=== PATIENT | female | born 2000 ===

== ENCOUNTER 2020-05-23 14:29 | Emergency (ER) | payer BC ==
[2020-05-23 14:37] VITALS: BP 140/72
[2020-05-23] MEDS ORDERED: DICYCLOMINE 20 MG TAB PO ONE (17:29)
--- NOTE | 2020-05-23 17:35 | Emergency Department Report ---
ED Abdominal Pain HPI - General Chief Complaint: GI Bleed Stated Complaint: STOMACH PAIN/THROWING UP BLOOD Time Seen by Provider: 05/23/20 17:28 Source: patient Mode of arrival: Ambulatory Limitations: No Limitations - History of Present Illness Initial Comments: The patient was evaluated in the emergency department for symptoms described in the history of present illness. He/she was evaluated in the context of the global COVID-19 pandemic, which necessitated consideration that the patient might be at risk for infection with the virus that causes COVID-19. Institutional protocols and algorithms that pertain to the evaluation of patients at risk for COVID-19 are in a state of rapid change based on information released by regulatory bodies including the CDC and federal and state organizations. These policies and algorithms were followed during the patient's care in the emergency department. Please note that these policies, procedures and recommendations changed on a rapid basis. 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 Patient reports that the pain is located in the ep igastric area it is constant and stabbing and is a 9 out of 10. Patient reports that last night she had vomited blood with her vomitus. Patient denies any fever but admits to chills. She denies any vaginal discharge no vaginal bleeding. She admits to nausea. She is 0. She denies any cigarette, cannabis use or alcohol consumption. Patient states that she has a current history of anemia and takes iron. She states nothing makes it better and worse with eating. Patient states that she has a primary care provider at [facility] - [place], [place] but did not follow-up with them. Her last menstrual period was 04/01/2020. She reports she has a history of irregular menses. MD Complaint: abdominal pain Onset/Timin -: week(s) Location: epigastric Radiation: none Migration to: no migration Severity scale (0 -10): 9 Quality: stabbing Consistency: constant Improves With: nothing Worsens With: eating Associated Symptoms: nausea, vomiting (X2), chills, hematemesis. denies: diarrhea, fever, constipation, dysuria, hematuria - Related Data LMP Date: 04/01/20 Previous Rx's Medication Instructions Recorded Last Taken Type Dicyclomine [Bentyl] 10 mg PO QID PRN #20 capsule 05/23/20 Unknown Rx Allergies Allergy/AdvReac Type Severity Reaction Status Date / Time No Known Allergies Allergy Unverified 10/28/15 21:03 ED Review of Systems ROS: Stated complaint: STOMACH PAIN/THROWING UP BLOOD Other details as noted in HPI Comment: All other systems reviewed and negative ED Past Medical Hx - Past Medical History Previous Medical History?: No - Surgical History Past Surgical History?: No - Social History Smoking Status: Never Smoker - Medications Home Medications: Home Medications Medication Instructions Recorded Confirmed Last Taken Type Dicyclomine [Bentyl] 10 mg PO QID PRN #20 capsule 05/23/20 Unknown Rx ED Physical Exam - General Limitations: No Limitations General appearance: alert, in no apparent distress - Head Head exam: Present: atraumatic, normocephalic - Eye Eye exam: Present: normal appearance - ENT ENT exam: Present: mucous membranes moist - Neck Neck exam: Present: normal inspection, full ROM - Respiratory Respiratory exam: Present: normal lung sounds bilaterally. Absent: accessory muscle use - Cardiovascular Cardiovascular Exam: Present: regular rate - GI/Abdominal GI/Abdominal exam: Present: soft, tenderness (Epigastric), normal bowel sounds. Absent: distended - Extremities Exam Extremities exam: Present: normal inspection, full ROM - Back Exam Back exam: Present: normal inspection, full ROM - Neurological Exam Neurological exam: Present: alert, oriented X3, normal gait - Psychiatric Psychiatric exam: Present: normal affect, normal mood - Skin Skin exam: Present: warm, dry, intact, normal color. Absent: rash ED Course Vital Signs 05/23/20 14:36 Temperature 98.0 F Pulse Rate 78 Respiratory 16 Rate Blood Pressure 140/72 O2 Sat by Pulse 99 Oximetry - Reevaluation(s) Reevaluation #1: 05/23/20 20:59 Patient reports she feels better after having the medication. ED Medical Decision Making - Lab Data Result diagrams: 05/23/20 17:36 05/23/20 17:36 - Radiology Data Radiology results: report reviewed Ordering Physician: MISBAH EWING Date of Service: 05/23/20 Procedure(s): CT abdomen pelvis w con Accession Number(s): [id number] cc: MISBAH EWING CT ABDOMEN AND PELVIS WITH IV CONTRAST INDICATION: Epigastric pain with tenderness nausea vomiting. COMPARISON: None available. TECHNIQUE: All CT scans at this facility use dose modulation, automated exposure control, iterative reconstruction or weight based dosing, when appropriate, to reduce radiation dose to as low as reasonably achievable. FINDINGS: Lung Bases: No significant abnormality. Skeletal System: No acute abnormality. ABDOMEN: Liver: No significant abnormality. Gallbladder: No significant abnormality. Bile Ducts: No significant abnormality. Pancreas: No significant abnormality. Spleen: No significant abnormality. Adrenals: No significant abnormality. Right Kidney: There is a single punctate nonobstructing calyceal stone. No hydronephrosis. Left Kidney: No significant abnormality. Upper GI tract: No significant abnormality. Lymph Nodes: No significant adenopathy. Aorta: No significant abnormality. Additional Findings: No significant abnormality. PELVIS: Colon: No acute abnormality. Urinary Bladder and Distal Ureters: No significant abnormality. Appendix: No significant abnormality. Lymph Nodes: No significant adenopathy. Additional Findings: None. IMPRESSION: 1. No acute process in the abdomen or pelvis. 2. Incidental findings, as above. Signer Name: Gustavo Tatum MD Signed: 05/23/2020 8:36 PM Workstation Name: [id number] Transcribed By: EVANGELINA Dictated By: Gustavo Tatum MD Electronically Authenticated By: Gustavo Tatum MD Signed Date/Time: 05/23/202035 DD/ 31 TD/TT: - Medical Decision Making 19-year-old -Lux[place]bourger female presents to the emergency room complaining of abdominal pain x1 week. Patient reports that the pain is located in the epigastric area it is constant and stabbing and is a 9 out of 10. Patient reports that last night she had vomited blood with her vomitus. Patient denies any fever but admits to chills. She denies any vaginal discharge no vaginal bleeding. She admits to nausea. She is 0. She denies any cigarette, cannabis use or alcohol consumption. Patient states that she has a current history of anemia and takes iron. She states nothing makes it better and worse with eating. Patient states that she has a primary care provider at [facility] - [place], [place] but did not follow-up with them. Her last menstrual period was 04/01/2020. She reports she has a history of irregular menses. CBC, CMP, lipase urinalysis hCG and CT with contrast of abdomen and pelvis. Pepcid 20mg Bentyl 20mg p.o. have been ordered. CT scan shows no acute abnormalities. It does show some incidental finding of a puncture noted calyceal stone. Labs are unremarkable. Patient be discharged home on Bentyl. Critical care attestation.: If time is entered above; I have spent that time in minutes in the direct care of this critically ill patient, excluding procedure time. ED Disposition Clinical Impression: Acute abdominal pain Disposition: DC-01 TO HOME OR SELFCARE Is pt being admited?: No Does the pt Need Aspirin: No Condition: Stable Instructions: Abdominal Pain, Adult, [id number] Additional Instructions: CT scan is negative for any acute abnormalities. I recommend taking the Bentyl as needed for abdominal discomfort. Follow-up with the primary care provider. Prescriptions: Dicyclomine [Bentyl] 10 mg PO QID PRN #20 capsule PRN Reason: Abdominal pain Forms: Accompanied Note
[2020-05-23 18:09] LABS: Basophils % (Auto) 0.4 % (0.0-1.8); Eosinophils % (Auto) 0.3 % (0.0-4.3); Hemoglobin 12.1 gm/dl (10.1-14.3); Mean Corpuscular HGB Conc 33 % (30-34); Mean Corpuscular Volume 88 fl (79-97); Monocytes # (Auto) 0.4 K/mm3 (0.0-0.8); Monocytes % (Auto) 7.1 % (0.0-7.3); Platelet Count 183 K/mm3 (140-440); Red Cell Distribution Width 13.9 % (13.2-15.2)
[2020-05-23 18:22] LABS: Alanine Aminotransferase 11 units/L (7-56); Albumin 4.1 g/dL (3.9-5); BUN/Creatinine Ratio 9; Blood Urea Nitrogen 7 mg/dL (7-17); Calcium 9.1 mg/dL (8.4-10.2); Hemolysis Index 14
[2020-05-23 18:24] LABS: Bilirubin,Direct < 0.2 mg/dL (0-0.2)
[2020-05-23 19:44] LABS: HCG Qualitative,Urine Negative (Negative)
--- NOTE | 2020-05-23 20:41 | Cat Scan Report ---
CT ABDOMEN AND PELVIS WITH IV CONTRAST INDICATION: Epigastric pain with tenderness nausea vomiting. COMPARISON: None available. TECHNIQUE: All CT scans at this facility use dose modulation, automated exposure control, iterative reconstructi on or weight based dosing, when appropriate, to reduce radiation dose to as low as reasonably achieva ble. FINDINGS: Lung Bases: No significant abnormality. Skeletal System: No acute abnormality. ABDOMEN: Liver: No significant abnormality. Gallbladder: No significant abnormality. Bile Ducts: No significant abnormality. Pancreas: No significant abnormality. Spleen: No significant abnormality. Adrenals: No significant abnormality. Right Kidney: There is a single punctate nonobstructing calyceal stone. No hydronephrosis. Left Kidney: No significant abnormality. Upper GI tract: No significant abnormality. Lymph Nodes: No significant adenopathy. Aorta: No significant abnormality. Additional Findings: No significant abnormality. PELVIS: Colon: No acute abnormality. Urinary Bladder and Distal Ureters: No significant abnormality. Appendix: No significant abnormality. Lymph Nodes: No significant adenopathy. Additional Findings: None. IMPRESSION: 1. No acute process in the abdomen or pelvis. 2. Incidental findings, as above. Signer Name: Gustavo Tatum MD Signed: 05/23/2020 8:36 PM Workstation Name: [id number]
== END 2020-05-23 22:15 | disposition home or self-care (01) ==
LOC: ED 14:29
DX: R10.13 Epigastric pain (principal); R11.2 Nausea with vomiting, unspecified; Z79.899 Other long term (current) drug therapy
CPT/HCPCS: 36415; 74177; 80048; 80076; 81025; 83690; 85025; 99284; Q9967